=== PATIENT | male | born 1960 | race African-American/Black ===

== ENCOUNTER 2020-03-05 13:05 | Outpatient (CLI) | payer OTHER | END 2020-03-05 23:39 | disposition home or self-care (01) | LOC: RESP 13:05 | DX: R07.9 Chest pain, unspecified (principal); R06.02 Shortness of breath; R94.31 Abnormal electrocardiogram [ECG] [EKG]; R01.1 Cardiac murmur, unspecified; R74.0 Nonspecific elevation of levels of transaminase and lactic acid dehydrogenase [LDH] ==

== ENCOUNTER 2020-03-31 10:56 | Outpatient (CLI) | payer OTHER | END 2020-03-31 19:10 | disposition home or self-care (01) | LOC: RESP 10:56 | DX: R94.31 Abnormal electrocardiogram [ECG] [EKG] (principal); R07.9 Chest pain, unspecified ==

== ENCOUNTER 2020-09-02 14:41 | Outpatient (CLI) | payer OTHER | END 2020-09-02 22:21 | disposition home or self-care (01) | LOC: INF 14:41 | PROVIDERS: ATTEND Internal Medicine | DX: Z23 Encounter for immunization (principal) | CPT/HCPCS: 96372 ==

== ENCOUNTER 2020-09-24 14:29 | Outpatient (CLI) | payer OTHER | END 2020-09-24 22:24 | disposition home or self-care (01) | LOC: INF 14:29 | PROVIDERS: ATTEND Internal Medicine | DX: Z23 Encounter for immunization (principal) ==

== ENCOUNTER 2020-10-26 18:33 | Observation (INO) | payer OTHER ==
[~2020-10-26] VITALS: Ht 177.8 cm; Wt 93.6 kg
--- NOTE | 2020-10-26 19:18 | NUR ---
PATIENT DIRECT ADMIT FROM OFFICE BROUGHT VIA WHEELCHAIR. PATIENT TAKEN TO ROOM 1117. PATIENT ORIENTED AND CALL LIGHT. FAMILY IS AT THE BEDSIDE. BED LOCKED IN LOW POSITION, CALL LENZ WITHIN REACH.
[2020-10-26 19:33] LABS: PLATELET COUNT 139 K/uL (142-355)
[2020-10-26 19:53] LABS: POTASSIUM 3.3 mmol/L (3.6-5.2)
[2020-10-26 20:10] VITALS: BP 166/70; TEMP 98.3; Ht 177.8 cm; Wt 93.6 kg
--- NOTE | 2020-10-26 20:30 | NUR ---
ENTERED PATIENT'S ROOM AT THIS TIME. PATIENT SITTING UP IN BED. HE STATES THAT HE NEEDS SOMETHING TO HELP HIM REST TONIGHT. HE HASN'T BEEN RESTING LATELY. I ASKED IF HE FEELS NERVOUS OR ANXIOUS- HE STATES YES. WHEN ASKED ABOUT PAIN, HE POINTS TO THE MID-ABDOMINAL AND EPIGASTRIC AREA. HE REPORTS FEELING TIGHTNESS AND WHAT FEELS LIKE GAS. HE GETS NAUSEOUS FROM TIME TO TIME. WATER AND ICE GIVEN TO PATIENT- ENCOURAGED TO TAKE SMALL SIPS AT A TIME. I INFORMED PATIENT THAT I WOULD CHECK WITH DR. SERNA REGARDING SOMETHING TO HELP HIME SLEEP. HE VERBALIZED UNDERSTANDING OF THE ABOVE. AGAIN EDUCATED ABOUT CALL LIGHT AND SURROUNDINGS. CALL LIGHT WITHIN REACH.
--- NOTE | 2020-10-26 22:00 | NUR ---
CALLED AND SPOKE WITH DR. SERNA. ORDERS GIVEN FOR: BENADRYL 25MG IV X ONE DOSE NOW; GI COCKTAIL X ONE DOSE NOW. LAB WORK AND X-RAYS REPORTED TO HER ALSO. FURTHER ORDERS GIVEN FOR: VITAMIN D 5,000 DAILY TO START IN THE AM; START ELECTROLYE PROTOCOL FOR HYPOKALEMIA; REPEAT CBC, CMP, MG AND PHOSPHORUS WITH AM CARDIACS. ALL ORDERS READ BACK AND VERIFIED BY DR. SERNA. ALL MEDICATION ORDERS FAXED TO PHARMACY.
[2020-10-27] VITALS: BP 141/59; TEMP 98.2
--- NOTE | 2020-10-27 01:45 | NUR ---
PATIENT RESTING QUIETLY IN BED WITH EYES CLOSED. NAD NOTED. RESPIRATIONS EVEN AND UNLABORED. HE STATES THAT HE IS RESTING WELL AND DENIES ANY PAIN AT THIS TIME. NITROGLYCERIN NOT GIVEN AT THIS TIME. BED LOCKED AND IN LOWEST POSITION. CALL LIGHT WITHIN REACH.
[2020-10-27 04:00] VITALS: BP 151/66; TEMP 98.3
[2020-10-27 04:38] LABS: PLATELET COUNT 126 K/uL (142-355)
[2020-10-27 04:47] LABS: POTASSIUM 3.9 mmol/L (3.6-5.2)
--- NOTE | 2020-10-27 06:15 | NUR ---
IN TO CHECK ON PATIENT. HE IS RESTING QUIETLY IN BED WITH EYES CLOSED. HE STATES, "MY CHEST IS NOT HURTING, I JUST FEEL LIKE I NEED TO CLEAR IT." PATIENT COUGHING AND STATES THAT IT HELPS SOME. NAD NOTED. PREVIOUS EKG SHOWED SINUS BRADYCARDIA. NITROGLYCERIN NOT GIVEN AT THIS TIME. BED LOCKED AND IN LOWEST POSITION. CALL LIGHT WITHIN REACH.
[2020-10-27] MEDS ORDERED: CARAFATE1 GM PO (06:54)
[2020-10-27] MEDS ORDERED: PANTOPRAZOLE 40MG TA PO (06:55)
[2020-10-27] MEDS ORDERED: METOPROLOL25 M1 PO (06:55)
[2020-10-27] MEDS ORDERED: COZAAR100 MG PO (06:56)
[2020-10-27] MEDS ORDERED: NASACORT NAS (06:57)
[2020-10-27 08:00] VITALS: BP 172/81; TEMP 98.3
--- NOTE | 2020-10-27 10:30 | NUR ---
PT EXPRESSED COMPLAINT ABOUT FEELING NAUSEATED, PRN PROMETHAZINE HAS BEEN ADMINISTERED AND PT IS CURRENTLY ASLEEP.
[2020-10-27 12:00] VITALS: BP 149/74; TEMP 97.8
--- NOTE | 2020-10-27 12:00 | NUR ---
APPOINTMENT WITH GI PHYSICIAN HAS BEEN MADE FOR AN OUTPATIENT EGD PER DOCTORS ORDERS.
--- NOTE | 2020-10-27 13:23 | NUR ---
CONTACTED PCP ABOUT NITRO ADMINISTRATION TO CLARIFY IF ADMINISTRATION SHOULD BE CONTINUED. PT STATED THAT HE HAS HAD NO CHEST PAIN BUT IT IS A LITTLE TIGHT. WHEN ASKED IF IT FEELS LIKE PRESSURE OR HARD TO BREATH, PT STATED THAT IT IS HARD TO BREATHE AND THAT IT COMES AND GOES BUT HAS BEEN BETTER WHILE IN THE HOSPITAL. TOWER CRANE OPERATOR ALSO INFORMED PCP THAT PT IS EXPERIENCING DIZZINESS WHEN GETTING OUT OF THE BED. PCP HAD PT ROTATE HIS HEAD QUICKLY PT STATED THAT IT ONLY MADE HIM A LITTLE DIZZY. THEN HE ROTATED HIS HEAD QUICKLY AND STOOD UP, PT'S EYES BEGAN TO TWITCH SLIGHTLY AND PT SEEMED DIZZY BUT DENIED THAT HE WAS. ORTHOSTATICS WERE PERFORMED WITHOUT ANY SIGNIFICANT RESULTS THAT WOULD INDICATE ORTHOSTATIC HYPOTENSION.
--- NOTE | 2020-10-27 14:37 | NUR ---
PT IS RECIEVING A BOLUS OF 500 ML. CONTINUOUS PULSE OX HAS BEEN PLACED ON PT PER DOCTORS ORDERS.
[2020-10-27 16:00] VITALS: BP 164/80; TEMP 97.8
--- NOTE | 2020-10-27 17:20 | NUR ---
DISCHARGE INSTRUCTIONS WERE GIVEN TO PT AND PT'S DAUGHTER. BOTH VERBALIZED UNDERSTANDING OF DISCHARGE INSTRUCTIONS. PT WAS DISCHARGED FROM THE HOSPITAL VIA WHEELCHAIR TO DAUGHTER'S PERSONAL VEHICLE. IV WAS REMOVED BEFORE DISMISSAL WITHOUT DIFFICULTY AND WITH CATHETER STILL INTACT. NAD WAS NOTED DURING DISCHARGE FROM THE HOSPITAL.
== END 2020-10-27 17:15 | disposition home or self-care (01) ==
LOC: MED/SURG 18:33
PROVIDERS: ADMIT Family Medicine; ATTEND Family Medicine
DX: R07.89 Other chest pain (principal); K21.9 Gastro-esophageal reflux disease without esophagitis; R06.09 Other forms of dyspnea; Z20.822 Contact with and (suspected) exposure to COVID-19; E11.9 Type 2 diabetes mellitus without complications; I10 Essential (primary) hypertension; R10.9 Unspecified abdominal pain
CPT/HCPCS: 36415; 80053; 80074; 82306; 82550; 82607; 82652; 82728; 82746; 83036; 83540; 83550; 83735; 84100; 84425; 84446; 84484; 85027; 85610; 85730; 93005; 94760; 99220; G0378; G0379; J0610; J1200; J1650; J2550; J3475

== ENCOUNTER 2020-10-28 10:22 | Outpatient (CLI) | payer OTHER ==
[~2020-10-28 10:22] MED LIST: CARAFATE1 GM PO; COZAAR100 MG PO; METOPROLOL25 M1 PO; NASACORT NAS; PANTOPRAZOLE 40MG TA PO
== END 2020-10-28 20:43 | disposition home or self-care (01) ==
LOC: US 10:22
PROVIDERS: ATTEND Family Medicine
DX: R10.13 Epigastric pain (principal)

== ENCOUNTER 2020-12-02 11:20 | Day surgery (SDC) | payer OTHER ==
[~2020-12-02] VITALS: Ht 33 cm; Wt 0.5 kg
== END 2020-12-02 14:18 | disposition home or self-care (01) ==
LOC: OR 11:20
PROVIDERS: ATTEND Internal Medicine Gastroenterology
PROC: 0DB68ZZ Excision of Stomach, Via Natural or Artificial Opening Endoscopic (ICD-10-PCS; principal; 2020-12-02)
PROC: 0DB88ZZ Excision of Small Intestine, Via Natural or Artificial Opening Endoscopic (ICD-10-PCS; 2020-12-02)
DX: K21.00 Gastro-esophageal reflux disease with esophagitis, without bleeding (principal); K29.50 Unspecified chronic gastritis without bleeding; R11.2 Nausea with vomiting, unspecified; R19.7 Diarrhea, unspecified; Z20.822 Contact with and (suspected) exposure to COVID-19
CPT/HCPCS: 87635; J2704; U0003

== ENCOUNTER 2021-01-06 12:52 | Outpatient (CLI) | payer OTHER | END 2021-01-06 20:59 | disposition home or self-care (01) | LOC: NM 12:52 | PROVIDERS: ATTEND Internal Medicine Gastroenterology | DX: R11.0 Nausea (principal) | CPT/HCPCS: A9541 ==

== ENCOUNTER 2021-05-05 16:20 | Inpatient (IN) | payer OTHER ==
[~2021-05-05] VITALS: Ht 177.8 cm; Wt 94.0 kg
[2021-05-05 16:30] VITALS: BP 158/61; TEMP 101
[2021-05-05 17:47] LABS: PLATELET COUNT 197 K/uL (142-355)
[2021-05-05 17:57] LABS: POTASSIUM 3.5 mmol/L (3.6-5.2)
[2021-05-05 22:30] VITALS: TEMP 98.9
[2021-05-06 00:30] VITALS: BP 118/54; TEMP 97.8
[2021-05-06 04:30] VITALS: BP 93/35; TEMP 98.4
[2021-05-06 05:05] LABS: PLATELET COUNT 195 K/uL (142-355)
[2021-05-06 05:17] LABS: POTASSIUM 3.8 mmol/L (3.6-5.2)
[2021-05-06 06:03] VITALS: BP 136/56; TEMP 103; Ht 177.8 cm; Wt 94.0 kg
[2021-05-06 08:00] VITALS: BP 119/57; TEMP 98.2
[2021-05-06] MEDS ORDERED: PEPCID40 MG PO (08:00)
[2021-05-06] MEDS ORDERED: METOCLOPRAM10 MG PO (08:01)
[2021-05-06] MEDS ORDERED: ALL DAY ALLG10 MG PO (08:02)
[2021-05-06] MEDS ORDERED: CEFD300C2 PO (08:03)
[2021-05-06] MEDS ORDERED: HYDR25SU3 RE (08:07)
[2021-05-06] MEDS ORDERED: CODEINE/APAP1 TA1 PO (08:10)
[2021-05-06 12:00] VITALS: BP 132/51; TEMP 98.1
== END 2021-05-06 17:30 | disposition short-term general hospital (02) | DRG 395 ==
LOC: ED 16:20 → MED/SURG 19:10
PROVIDERS: Family Medicine; ADMIT Family Medicine; ATTEND Family Medicine
DX: K61.1 Rectal abscess (principal); K59.00 Constipation, unspecified; I10 Essential (primary) hypertension; R50.9 Fever, unspecified; E78.49 Other hyperlipidemia; K21.9 Gastro-esophageal reflux disease without esophagitis; R73.03 Prediabetes; K57.30 Diverticulosis of large intestine without perforation or abscess without bleeding
CPT/HCPCS: 36415; 80053; 81000; 83036; 85027; 87040; 87635; 99283; J1650; J1885; J2270; J2405; J2543; J3490; Q9963; U0003

== ENCOUNTER 2021-06-15 09:32 | Outpatient (CLI) | payer OTHER ==
[~2021-06-15 09:32] MED LIST changes: +ALL DAY ALLG10 MG PO; +CEFD300C2 PO; +CODEINE/APAP1 TA1 PO; +HYDR25SU3 RE; +METOCLOPRAM10 MG PO; +PEPCID40 MG PO
== END 2021-06-15 19:02 | disposition home or self-care (01) ==
LOC: RAD 09:32
PROVIDERS: ATTEND Family Medicine
DX: R10.9 Unspecified abdominal pain (principal); S39.91XA Unspecified injury of abdomen, initial encounter; Y92.9 Unspecified place or not applicable

== ENCOUNTER 2021-09-06 14:01 | Outpatient (CLI) | payer OTHER | END 2021-09-06 19:14 | disposition home or self-care (01) | LOC: US 14:01 | PROVIDERS: ATTEND Family Medicine | DX: H93.13 Tinnitus, bilateral (principal); R42 Dizziness and giddiness; R51.9 Headache, unspecified; I10 Essential (primary) hypertension ==

== ENCOUNTER 2022-05-09 10:56 | Outpatient (CLI) | payer OTHER | END 2022-05-09 20:27 | disposition home or self-care (01) | LOC: RAD 10:56 | PROVIDERS: ATTEND Family Medicine | DX: M54.89 Other dorsalgia (principal); M25.512 Pain in left shoulder ==